=== PATIENT | male | born 1985 ===

== ENCOUNTER 2018-06-24 06:25 | Day surgery (SDC) | payer BC ==
[2018-06-24] VITALS (8 sets, daily range): BP systolic 125–145; BP diastolic 72–96
[~2018-06-24] VITALS: Ht 170.2 cm; Wt 68.9 kg
[2018-06-24] MEDS ORDERED: BUSPAR10 MG ORAL (07:17)
[2018-06-24] MEDS ORDERED: Propofol 200mg/20ml IV ONE (07:45)
[2018-06-24] MEDS ORDERED: LR 1000ml ONE (07:45)
[2018-06-24] MEDS ORDERED: Lidocaine 1% MPF 10mg/ml 5ml ONE (07:45)
--- NOTE | 2018-06-24 07:51 | Anethesia Preoperative Eval ---
Anesthesia Pre-op PMH/ROS General Date of Evaluation: Jun 24, 2018 Time of Evaluation: 07:50 Anesthesiologist: dulce ASA Score: ASA 2 Mallampati Score Class I : Soft palate, uvula, fauces, pillars visible Class II: Soft palate, uvula, fauces visible Class III: Soft palate, base of uvula visible Class IV: Only hard plate visible Mallampati Classification: Class II Surgeon: cuauhtemoc Diagnosis: gerd Surgical Procedure: egd Anesthesia History: none Social History: current smoker Family History: no anesthesia problems Allergies: Coded Allergies: No Known Allergies (Unverified , 06/24/18) Medications: see eMAR Patient NPO?: Yes Past Medical History Neurologic/Psychiatric: Reports: depression/anxiety PSxH Narrative: appendectomy Anesthesia Pre-op Phys. Exam Physician Exam Last Vital Signs Date Time Temp Pulse Resp B/P (MAP) Pulse Ox O2 Delivery O2 Flow Rate FiO2 06/24/18 07:19 97.2 56 20 125/72 99 Room Air Constitutional: NAD Neurologic: CN 2-12 intact Cardiovascular: RRR Respiratory: CTA Gastrointestinal: S/NT/ND Airway Exam Mallampati Score: Class II MO: full Neck: flexible TMD: 2fb ROM: full Anesthesia Pre-op A/P Risk Assessment & Plan Assessment: asa2 Plan: mac Status Change Before Surgery: No Pre-Antibiotics Drug: Megan Chapman MD Jun 24, 2018 07:51
[2018-06-24] MEDS ORDERED: Atropine Inj 1mg/10ml Syr IV PRN (08:00)
[2018-06-24] MEDS ORDERED: DiphenhydrAMINE 50mg/ml Inj IVP PRN (08:00)
[2018-06-24] MEDS ORDERED: Midazolam 2mg/2ml Inj IVP PRN (08:00)
[2018-06-24] MEDS ORDERED: fentaNYL 100 mcg/2 mL IV PRN (08:00)
--- NOTE | 2018-06-24 08:05 | Pre-Procedure Note/Attestation ---
Pre-Procedure Note/Attestation Complete Prior to Procedure Planned Procedure: not applicable Procedure Narrative: egd Indications for Procedure Pre-Operative Diagnosis: gerd Attestation I attest that I discussed the nature of the procedure; its benefits; risks and complications; and alternatives (and the risks and benefits of such alternatives ), prior to the procedure, with the patient (or the patient's legal inside sales representative). I attest that, if there was a reasonable possibility of needing a blood transfusion, the patient (or the patient's legal inside sales representative) was given the [facility] standardized written summary, pursuant to the Jose [place]esse[place] Blood Safety Act ([place] Health and Safety Code # 1645, as amended). I attest that I re-evaluated the patient just prior to the surgery and that there has been no change in the patient's H&P, except as documented below: Carol Burton MD Jun 24, 2018 08:05
--- NOTE | 2018-06-24 08:06 | Short Stay Surgery H&P ---
History of Present Illness History of Present Illness Chief Complaint see typed H&P HPI Rick Capellan is a 32 year old male who was admitted on for GERD Patient History Allergies: Coded Allergies: No Known Allergies (Unverified , 06/24/18) Medication History Scheduled Buspirone Hcl* (Buspar*), 5 MG ORAL BID, (Reported) Physical Exam Vital Signs Last Vital Signs Date Time Temp Pulse Resp B/P (MAP) Pulse Ox O2 Delivery O2 Flow Rate FiO2 06/24/18 07:19 97.2 56 20 125/72 99 Room Air Plan Attestation Are the patient's medical conditions optimized for surgery? Carol Burton MD Jun 24, 2018 08:06
--- NOTE | 2018-06-24 08:25 | Endoscopy Procedure Note ---
Endoscopy Procedure Note General Indication for Procedure: GERD, bloating Procedures Performed: EGD Operative Findings/Diagnosis: white coating in esoph , partial wash off, bx - D , A, LE, ME Specimen: yes Pt Tolerated Procedure Well: Yes Estimated Blood Loss: none Anesthesia Anesthesiologist: Alvin Clark Anesthesia: MAC Medications Medication Given: see anesthesia record Inserted Devices Implant(s) used?: No GI Core Measures 50 yrs or older w/o bx or poly: Not Applicable 10yrs. F/U not recommended: Not Applicable If not recommended, why?: Carol Burton MD Jun 24, 2018 08:24
--- NOTE | 2018-06-24 08:27 | Brief Operative Note ---
Immediate Post Operative Note Operative Note Chief Complaint: GERD, Bloat Pre-op Diagnosis: gerd Procedure: EGD, Bx Post-op Diagnosis: white coat in esophagus Surgeon: cuauhtemoc Anesthesiologist: Alvin Clark Anesthesia: MAC, moderate sedation Specimen: yes Complications: none Condition: stable Fluids: recorded Estimated Blood Loss: none Drains: none Implant(s) used?: No Carol Burton MD Jun 24, 2018 08:27
--- NOTE | 2018-06-24 09:03 | Immediate Post-Op Evaluation ---
Immediate Post-Op Evalulation Immediate Post-Op Evalulation Procedure: egd w/bx Date of Evaluation: Jun 24, 2018 Time of Evaluation: 08:39 IV Fluids: 150ml 0.9ns Blood Products: none Estimated Blood Loss: negligible Blood Pressure Systolic: 141 Blood Pressure Diastolic: 96 Pulse Rate: 55 Respiratory Rate: 18 O2 Sat by Pulse Oximetry: 99 Temperature (Fahrenheit): 97.0 Pain Score (1-10): 0 Nausea: No Vomiting: No Complications none Patient Status: awake, reacts, patent Hydration Status: adequate Drug: Megan Chapman MD Jun 24, 2018 09:03
--- NOTE | 2018-06-24 09:17 | 48 Hour Post Anesthesia Eval ---
Post Anesthesia Evaluation Procedure: egd w/bx Date of Evaluation: Jun 24, 2018 Time of Evaluation: 08:41 Blood Pressure Systolic: 133 0: 92 Pulse Rate: 52 Respiratory Rate: 18 Temperature (Fahrenheit): 97.0 O2 Sat by Pulse Oximetry: 99 Airway: patent Nausea: No Vomiting: No Pain Intensity: 0 Hydration Status: adequate Cardiopulmonary Status: stable Mental Status/LOC: patient returned to baseline Post-Anesthesia Complications: none Follow-up care needed: N/A Megan Mora MD Jun 24, 2018 09:16
--- NOTE | 2018-06-24 19:15 | Operative Note - Dictated ---
DATE OF OPERATION: 06/24/2018 GASTROENTEROLOGY PROCEDURE: PROCEDURE: Upper gastrointestinal endoscopy with biopsy. SURGEON: Carol Burton M.D. ANESTHESIA: Please see the separate anesthesiologist notes for details. PRE-ENDOSCOPIC DIAGNOSES: Reflux symptoms despite treatment as well as bloating. DESCRIPTION OF PROCEDURE: The procedure and risks were explained and an informed consent was obtained. The diagnostic endoscope was introduced into orophaynx and advanced to duodenum. The endoscope was gradually withdrawn and mucosa were examined carefully. Findings are as listed below. POST-ENDOSCOPIC DIAGNOSES: 1. Patchy right coating in the esophagus with only partial washing of the coating with water. 2. Status post random biopsies of the duodenum, antrum. The distal esophagus and mid esophagus. RECOMMENDATIONS: 1. Follow up biopsy results. 2. Continue reflux precautions and acid toni. 3. Trial of nystatin 4 times a day. 4. Outpatient followup. Thank you for asking me to participate in the care of this patient. Carol Burton M.D. DR: BLANK JOB#: [id number] CC: Tomasa Mohr M.D. MTDD
== END 2018-06-24 10:40 | disposition home or self-care (01) ==
LOC: GAS 06:25
DX: K21.9 Gastro-esophageal reflux disease without esophagitis (principal); K29.50 Unspecified chronic gastritis without bleeding; R14.0 Abdominal distension (gaseous); F17.200 Nicotine dependence, unspecified, uncomplicated; F41.9 Anxiety disorder, unspecified; Z90.89 Acquired absence of other organs; F32.9 Major depressive disorder, single episode, unspecified
CPT/HCPCS: 43239; J2704; 94003; 94150